=== PATIENT | female | born 1960 | race Caucasian/White ===

== ENCOUNTER 2020-03-25 20:08 | Emergency (ER) | payer BC ==
[~2020-03-25] VITALS: Ht 170.2 cm; Wt 75.0 kg
[2020-03-25 20:24] VITALS: Ht 170.2 cm; Wt 75.0 kg
[2020-03-25] MEDS ORDERED: LEVOXYL100 MCG PO (20:25)
[2020-03-25] MEDS ORDERED: MUPIROCIN22 GM TOPICAL (20:41)
[2020-03-25] MEDS ORDERED: VOLTAREN75 MG PO (20:41)
[2020-03-25 20:48] LABS: BASOPHILS 0.1 % (0-2); EOSINOPHILS 0.5 % (0-7); HEMATOCRIT 42.8 % (36.0-48.0); HEMOGLOBIN 13.9 g/dL (12-16); IMMATURE GRANULOCYTES 0.3 % (0-5); LYMPHOCYTES 20.6 % (15-50); MCH 29.6 pg (26.0-34.0); MCHC 32.5 g/dL (31.0-37.0); MCV 91.1 fL (80.0-100.0); MEAN PLATELET VOLUME 8.8 fL (7.4-10.4); MONOCYTES 7.2 % (2-11); NEUTROPHILS 71.3 % (40-80); PLATELET COUNT 306 10x3/uL (130-400); RDW 13.2 % (11.5-14.5); WBC 10.4 10x3/uL (4.8-10.8)
[2020-03-25 20:55] LABS: ANION GAP 15.6 mmol/L (8-16); CALCIUM 8.6 mg/dL (8.5-10.1); CARBON DIOXIDE 24.3 mmol/L (21.0-32.0); CREATININE - SERUM 0.9 mg/dL (0.6-1.3); POTASSIUM - SERUM 3.9 mmol/L (3.5-5.1)
[2020-03-25 21:01] LABS: ALBUMIN 4.1 g/dL (3.4-5.0); BILIRUBIN - TOTAL 0.27 mg/dL (0.2-1.3); PROTEIN - SERUM 8.2 g/dL (6.4-8.2)
[2020-03-25 21:17] LABS: BILIRUBIN NEGATIVE (NEGATIVE); GLUCOSE NEGATIVE (NEGATIVE); KETONE NEGATIVE (NEGATIVE); NITRITE NEGATIVE (NEGATIVE); UROBILINOGEN NORMAL (NORMAL)
[2020-03-25 21:21] LABS: BACTERIA MODERATE /hpf (NEGATIVE); RED CELLS - URINE 0-5 /hpf (0-5)
[2020-03-25] MEDS ORDERED: BACTRIM 400-801 TAB PO (21:27)
[2020-03-25 21:42] VITALS: BP 134/83
== END 2020-03-25 21:42 | disposition home or self-care (01) ==
LOC: D.ER 20:08
PROVIDERS: Family Medicine
DX: S80.812A Abrasion, left lower leg, initial encounter (principal); N39.0 Urinary tract infection, site not specified; W19.XXXA Unspecified fall, initial encounter; Y93.9 Activity, unspecified; Y92.9 Unspecified place or not applicable; M79.605 Pain in left leg; E07.9 Disorder of thyroid, unspecified